=== PATIENT | female | born 1975 | race Caucasian/White ===

== ENCOUNTER 2019-03-08 20:07 | Emergency (ER) | payer SELFPAY ==
[~2019-03-08] VITALS: Ht 172.7 cm; Wt 130.0 kg
[~2019-03-08 20:07] MED LIST: ALBUTEROL90 MCG IN; AVELOX400 MG OR; CHILD'S ASA81 MG OR; CIPROFLOXACN500 MG PO; IBUPROFEN800 MG PO; LORTAB5 PO; MOTRIN IB200 MG OR; NAPROSYN500 MG OR; PEPCID20 MG OR; PERCOCET1 TA2 OR; SKELAXIN800 MG OR; SYNTHROID125 MCG OR; SYNTHROID75 MCG OR; TYLENOL325 MG OR; ZOFRAN ODT8 MG PO
[2019-03-08] MEDS ORDERED: FIORICET PO (21:18)
[2019-03-08] MEDS ORDERED: ZOFRAN4 MG/TAB PO (21:18)
[2019-03-08 21:37] VITALS: BP 142/85
== END 2019-03-08 21:33 | disposition home or self-care (01) | DRG 103 ==
LOC: ED 20:07
DX: G43.909 Migraine, unspecified, not intractable, without status migrainosus (principal)